=== PATIENT | female | born 1945 | race Caucasian/White ===

== ENCOUNTER → 2017-01-13 | Day surgery (SDC) | payer MEDICARE ==
[~2017-01-13] MED LIST: ADVAIR INH; AGGRENOX1 CAP PO; ALBUTEROL17 GM INH; AMBIEN10 MG PO; ASPIRIN EC81 M1 PO; ATIVAN; BYSTOLIC5 MG PO; CRESTOR PO; LIPITOR40 MG PO; METFORMIN HCL500 M1 PO; METOPROLOL TAR25 MG; NEXIUM PO; OS-CAL 500500 MG DOB; PLAVIX PO; PRINIVIL20 M1 PO; PROVENTIL17 GM IH; SPIRIVA18 MCG INH; TRIAMTERENE-HCT1 TA8 PO; VERAPAMIL HCL240 M1 PO; VERAPAMIL HCL240 MG PO; VICODIN 5/1 TAB 5/50 PO; VITAMIN E400 UNI1 PO; ZYRTEC-D T1 TAB.SR1 PO
--- NOTE | ~2017-01-13 | OR ---
Unit #: [id number] #: [id number] Patient: LOGAN SINHA [id number] [address] [address] [id number] O MR#: [id number] NAME: LOGAN SINHA ROOM: Date of Procedure: 01/13/2017 Admission Date: 01/13/2017 Surgeon: Alonso Borrego M.D. : 1945 Attending Physician: Alonso Borrego M.D. Primary Care Physician: Arjun Valdes M.D. OPERATIVE REPORT PROCEDURE PERFORMED Colonoscopy with snare polypectomy. INDICATIONS FOR PROCEDURE The patient with history of large polyp with high-grade dysplasia, undergoing repeat evaluation to ensure complete polypectomy. MEDICATIONS Monitored anesthesia. POSTOPERATIVE FINDINGS 1. A 5 mm ascending colon polyp, which was snared and sent for histopathology. 2. Rest of the colonic mucosa was normal. Prep was good. PLAN Repeat colonoscopy after 3 years. DESCRIPTION OF PROCEDURE The patient was explained of the procedure, risks, and benefits along with the risks and benefits of anesthesia. She was brought to the endoscopy room. Propofol anesthesia was given. Rectal exam was done, which was normal. Colonoscope was lubricated, passed up the rectum, advanced under direct vision all the way to the cecum. Cecum was identified by ileocecal valve and appendiceal orifice. Small polyp seen in the ascending colon was snared and sent for histopathology. Rest of the mucosa was normal and healthy. I retroflexed in the rectum, hemorrhoids were noted. Gently, the scope was pulled out. She tolerated it well. Dictated by... Remy Rdz/jourdan TD: 02/01/2017 15:54 JOB #: [id number] Unit #: [id number] #: [id number] Patient: LOGAN SINHA OPERATIVE REPORT Page 1 of 1 X Alonso Borrego MD X PROCEDURE OPERATIVE NOTE
== END | disposition home or self-care (01) ==
LOC: COPS 12:11
DX: Z12.11 Encounter for screening for malignant neoplasm of colon (principal); D12.2 Benign neoplasm of ascending colon; K21.9 Gastro-esophageal reflux disease without esophagitis; Z86.73 Personal history of transient ischemic attack (TIA), and cerebral infarction without residual deficits; J43.9 Emphysema, unspecified; E11.9 Type 2 diabetes mellitus without complications; K52.9 Noninfective gastroenteritis and colitis, unspecified; Z88.8 Allergy status to other drugs, medicaments and biological substances; Z91.048 Other nonmedicinal substance allergy status; Z87.891 Personal history of nicotine dependence
CPT/HCPCS: 82947; 88305

== ENCOUNTER → 2017-03-17 | Outpatient (CLI) | payer MEDICARE ==
--- NOTE | ~2017-03-17 | MY29 ---
[facility] A Service of [facility] RADIOLOGY TEXT RESULTS PATIENT: LOGAN SINHA LOCATION: [facility] : [birth year] UNIT #: [id number] AGE: [address]: Arjun Valdes MD SEX: F ORDER DR: [id number] [facility] [address] [facility]. [place], [place] [address] [id number] O MR#: [id number] Acc #: [id number] NAME: LOGAN SINHA : 1945 SEX: F STUDY DATE/TIME: 03/17/2017 12:00 UNIT: [facility] ROOM: STUDY DESCRIPTION: MY [facility] SCREENING W/ CAD BILAT Attending Physician: Arjun Valdes M.D. Referring Physician: Arjun Valdes M.D. Ordering Physician: Arjun Valdes M.D. Primary Care Physician: Arjun Valdes M.D. MEDICAL IMAGING REPORT This report is preliminary unless electronic signature is present EXAM Digital screening mammogram, 03/17/2017 HISTORY 71-year-old woman positive family history, sister postmenopausal. Prior right breast biopsy. Annual screening. COMPARISON Outside mammograms 05/05/2010, 06/13/2014. FINDINGS Digital imaging of each breast was completed utilizing screening protocol. Biopsy marker was placed upper outer quadrant right breast. Review includes FDA-approved CAD device. The breast parenchyma is extremely dense. Right breast structure is slightly larger than left and benign parenchymal pattern is dominant in the right breast. However I see no suspicious mass characteristics. There are no suspicious microcalcifications and no architectural deformity. IMPRESSION Benign mammogram with extremely dense breast parenchyma. Stable benign dominance right breast. Annual screening recommended. Patients over the age of 40 are entered into a reminder system with target due date for the next mammogram. A result letter will also be sent to the patient. BIRADS: 2 Benign Finding Dictated by... Rashad Powers M.D. THIS IS AN ELECTRONICALLY VERIFIED REPORT [facility] A Service of [facility] RADIOLOGY TEXT RESULTS PATIENT: LOGAN SINHA LOCATION: [facility] #: [id number] : 41 UNIT #: [id number] AGE: [address]: Arjun Valdes MD SEX: F ORDER DR: Rashad Powers M.D. at 03/22/2017 8:08 AM Paige TD: 03/21/2017 17:01 JOB #: [id number] MEDICAL IMAGING REPORT Page 1 of 1 COPY
== END | disposition home or self-care (01) ==
LOC: CWCC 11:20
DX: Z12.31 Encounter for screening mammogram for malignant neoplasm of breast (principal); Z80.3 Family history of malignant neoplasm of breast
CPT/HCPCS: G0202